=== PATIENT | female | born 1985 | race African-American/Black ===

== ENCOUNTER 2022-06-24 14:30 | Outpatient (RCR) | payer OTHER, SELFPAY ==
--- NOTE | 2022-04-29 17:03 | PTOPEVAL1 ---
Assessment and note entered by Altaf Michel, PT Evaluation Information Assessment Status Evaluation Diagnosis Bilateral knee joint pain Onset Chronic Subjective Information Patient reports she has been working hard trying to lose weight and has lost 80 lbs., but she is starting to have knee pain. She reports the the L knee pops more. She is currently using to small based quad canes for walking. Clinical Summary Kimberly is a 36 year old female coming into the clinic with DAVIE knee pain. She has decreased range of motion secondary lower extremity girth and decreased strength. Recommend half land based half aquatic therapy to work on strengthening with decreased stress on joints and body. Prognosis is guarded secondary to weight. These treatments will address the objective and functional deficits as defined above. The patient will be advanced safely and appropriately in order for the patient to progress towards his/her prior level of function. Additional exercises will be introduced and as well as a comprehensive home exercise program upon discharge, if needed, ?to ensure carryover of functional gains achieved in the clinic. This treatment plan has been reviewed and agreement upon by the patient.
--- NOTE | 2022-05-27 15:42 | PTOPREEVAL ---
Assessment and note entered by Altaf Michel, PT Evaluation Information Assessment Status Re-evaluation Diagnosis DAVIE knee joints Onset Chronic Subjective Information Patient reports she feels she is moving around faster and the R LE especially is easier to lift up in and out of bed. Assessment PT Clinical Summary Kimberly is a 36 year old female coming into the clinic with DAVIE knee pain. She was evaluated on and has attended 6 sessions with no missed visits. She has met her strength and pain goals. Physical therapist believe patient can still get stronger in her DAVIE LE to allow for reduced stress on her knees and help with pain control. Plan of Care Interventions Aquatic Therapy,Electrical Stimulation,Gait Training,Hot Pack/Cold Pack,Manual Therapy,Neuro Re-education,Patient/Caregiver Education,Therapeutic Activities,Therapeutic Exercise,Ultrasound Other Interventions taping, cupine, IASTM. PT Services Indicated Yes Treatment Frequency and 1-2x/wk for 4 weeks Duration These treatments will address the objective and functional deficits as defined above. The patient will be advanced safely and appropriately in order for the patient to progress towards his/her prior level of function. Additional exercises will be introduced and as well as a comprehensive home exercise program upon discharge, if needed, ?to ensure carryover of functional gains achieved in the clinic. This treatment plan has been reviewed and agreement upon by the patient.
--- NOTE | 2022-06-24 15:53 | PTOPDC ---
Assessment and note entered by Altaf Michel, PT Evaluation Information Assessment Status Discharge Diagnosis DAVIE knee pain Onset Chronic Subjective Information Patient reports was doing well until a fall in the last week. Now has increased L thigh pain. Encouraged patient to use ice on the thigh not the knee joint. Patient feels comfortable with her HEP. Reported Pain Level Pain Score 4: Self Report Assessment PT Clinical Summary Kimberly is a 36 year old female coming into the clinic with a diagnosis of DAVIE knee pain. She was evaluated on 04/29/22 and attended 12 visits. She met all of her initial goals, but is having trouble with her new goals. Patient also has new orders for plantar fascitis from a different doctor. We will discharge her from physical therapy for the knees at this time and evaluate her for her feet issues. Patient is comfortable with her HEP and will still do aquatic therapy with her new diagnosis to help with the knee pain. Plan of Care PT Services Indicated No
== END 2022-06-25 14:40 | disposition home or self-care (01) ==
LOC: ANHPT 14:30
PROVIDERS: PCP Internal Medicine; Visit Provider Orthopaedic Surgery
DX: M25.561 Pain in right knee (principal)
CPT/HCPCS: 97110; 97113; 97161; 97530

== ENCOUNTER 2022-07-22 16:45 | Emergency (ER) | payer OTHER, SELFPAY ==
[2022-07-22] VITALS (20 sets, daily range): BP systolic 168–225; BP diastolic 112–156; PULSE 73–101; RESP 14–30; TEMP 36.2; O2SAT 95–100
--- NOTE | ~2022-07-22 | CT_ITS ---
EXAMINATION: CT brain wo con DATE: 07/22/2022 17:47 INDICATION: Headache. TECHNIQUE: Computed tomography (CT) of the head was performed without intravenous contrast. The mA wa s adjusted according to patient size. Iterative reconstruction technique was employed. The dose-lengt h product was 681.00 mGy-cm. COMPARISON: Head CT 09/20/2016 FINDINGS: There is no intracranial hemorrhage, acute infarction, or abnormal intracranial mass lesion . The ventricles are normal in size. Cavum septum pellucidum and vergae are noted. There is mucosal t hickening in the paranasal sinuses. The mastoid air cells are normal. The orbits are normal. IMPRESSION: 1. Normal brain. Reviewed, dictated and finalized at location E. IMPRESSION: 1. Normal brain.
--- NOTE | ~2022-07-22 | XR_ITS ---
EXAMINATION: XR chest 1V portable DATE: 07/22/2022 19:06 INDICATION: Hypertensive urgency. TECHNIQUE: A single frontal view of the chest was obtained. COMPARISON: None. FINDINGS: The chest demonstrates clear lungs without pneumonia, pleural effusion, or pneumothorax. Th e heart size is normal. IMPRESSION: 1. No acute cardiopulmonary disease. Reviewed, dictated and finalized at location E.
[2022-07-22 17:48] LABS: Basophils Percent Auto 0.6 % (0.2-1.2); Eosinophils Absolute Auto 0.2 K/mm3 (0-0.3); Eosinophils Percent Auto 3.3 % (0-4.4); Hematocrit 40.9 % (37.0-47.0); Hemoglobin 13.5 g/dL (12.0-15.0); Immature Granulocyte Absolute 0.02 K/mm3 (0.00-0.031); Immature Granulocyte Percent A 0.3 % (0-0.5); Lymphocytes Absolute Auto 2.77 K/mm3 (0.9-3.2); Lymphocytes Percent Auto 39.9 % (18.3-44.2); Mean Corpuscular Volume 90.9 fl (80-100); Mean Platelet Volume 11.7 fl (7.4-10.4); Monocytes Absolute Auto 0.6 K/mm3 (0.1-0.6); Monocytes Percent Auto 8.1 % (2.6-8.5); Neutrophils Absolute Auto 3.3 K/mm3 (1.3-6.7); Neutrophils Percent Auto 47.8 % (45.5-73.1); Platelet Count Result 192 k/mm3 (150-375); Red Cell Distribution Width 12.6 % (11.5-14.5); White Blood Count 6.9 K/mm3 (4.5-10.0)
[2022-07-22] MEDS: hydrALAZINE HCL 20 MG/ML VIAL 10 MG IV PUSH (17:51)
[2022-07-22 17:55] LABS: Alanine Aminotransferase 35 U/L (6-35); Albumin Level 3.9 g/dL (3.5-5.1); Alkaline Phosphatase 56 U/L (38-126); Anion Gap 2 mmol/L (8-16); Aspartate Amino Transferase 29 U/L (14-36); Bilirubin,Total 0.4 mg/dL (0.2-1.3); Blood Urea Nitrogen 13 mg/dL (7-17); Calcium 9.1 mg/dL (8.4-10.2); Carbon Dioxide 32 mmol/L (22-30); Chloride 102 mmol/L (98-107); Estimated CRCL calculation 178 ml/min; Estimated Glomerular Filt Rate > 60; Glucose 83 mg/dL (65-110); Potassium 3.8 mmol/L (3.4-5.0); Sodium 136 mmol/L (137-145)
--- NOTE | 2022-07-22 18:11 | ED.GENADULT ---
HPI - General Adult General Chief complaint: Recheck/Abnormal Lab/Rx <Robert Marina PA-C - Last Filed: 07/22/22 21:43> Stated complaint: HTN <CHATA Estrella Last Filed: 07/22/22 21:43> Time Seen by Provider: 07/22/22 17:24 <CHATA Estrella Last Filed: 07/22/22 21:43> Source: patient <CHATA Estrella Last Filed: 07/22/22 21:43> Mode of arrival: ambulatory <CHATA Estrella Last Filed: 07/22/22 21:43> Limitations: no limitations <CHATA Estrella Last Filed: 07/22/22 21:43> History of Present Illness HPI narrative: This is a 36 yo F who presents to the ED with chief complaint of hypertension measured 1 time at PCP and multiple times at home with home blood pressure cuff. Patient reports blood pressures in the 200s over 110s. She states that she has occasional shortness of breath. Denies chest pain. Reports 5 seconds of blurred vision while in the waiting room that has completely resolved. Reports a mild headache that is familiar to her. Denies any other neurologic symptoms or sudden onset headache. Denies abdominal pain, vomiting. <Robert Marina PA-C - Last Filed: 07/22/22 21:43> Related Data Allergies/adverse reactions: Allergies Allergy/AdvReac Type Severity Reaction Status Date / Time ciprofloxacin Allergy Unknown Unknown Verified 07/22/22 16:46 <Robert Marina PA-C - Last Filed: 07/22/22 21:43> Review of Systems Review of Systems: CONSTITUTIONAL: Denies fever, chills, or sweats. EYES: Denies visual changes, redness, or discharge. ENT: Denies rhinorrhea, congestion, sore throat, or otalgia. CARDIOVASCULAR: Denies chest pain, palpitations, or edema. RESPIRATORY: Denies cough or dyspnea. GASTROINTESTINAL: Denies abdominal pain, nausea, vomiting, or diarrhea. GENITOURINARY: Denies dysuria or hematuria. SKIN: Denies rash or itching. MUSCULOSKELETAL: Denies back pain, joint pain, or myalgia. NEUROLOGIC: Denies headache, numbness, dizziness, or weakness. PSYCHIATRIC: Denies anxiety or depression. <Robert Marina PA-C - Last Filed: 07/22/22 21:43> Exam Narrative: GENERAL: Well-appearing, well-nourished, and in no acute distress. HEAD: Normocephalic, atraumatic. EYES: PERRLA and EOMI. ENT: Nares clear, no rhinorrhea or epistaxis. Mucous membranes moist. Oropharynx without tonsillar hypertrophy exudate or other lesions. NECK: Supple. No adenopathy or masses. CHEST: No respiratory distress. Clear to auscultation. No wheezes rales or rhonchi HEART: Regular rate and rhythm. No murmur heard. Normal peripheral pulses. ABDOMEN: Soft, nontender, nondistended, normal active bowel sounds. MSK: Normal range of motion. No edema. SKIN: Warm, dry, no rash. NEURO: Alert and oriented x3. No focal deficits. PSYCH: Normal mood and affect. <Robert Marina PA-C - Last Filed: 07/22/22 21:43> Course [employer]PER[employer]OR/PA Physician Supervision This is a was performed by both a physician and an APC. I performed all aspects of the MDM as documented w/ the following additions: 36-year-old female presenting with hypotension. She had some subjective complaints on arrival but no objective findings. Her lab work was normal. On re-evaluation she is asymptomatic. Patient will be discharged with a diagnosis of asymptomatic hypertension and given primary care follow-up. All questions answered. Patient in agreement w/ disposition. <Edward Arenas MD - Last Filed: 07/23/22 05:36> Vital Signs Vital signs: Vital Signs Temperature 97.2 F L 07/22/22 16:50 Pulse Rate 101 H 07/22/22 16:50 Respiratory Rate 22 H 07/22/22 16:50 Blood Pressure 225/124 H 07/22/22 16:50 Pulse Oximetry 100 07/22/22 16:50 Oxygen Delivery Room Air 07/22/22 16:50 Temperature 97.2 F L 07/22/22 16:50 Pulse Rate 83 07/22/22 20:01 Respiratory Rate 14 07/22/22 20:01 Blood Pressure 178/112 H 07/22/22 20:01 Pulse Oximetry 98 07/22/22 20:01 Oxygen Delivery Ro
[2022-07-22] MEDS: KETOROLAC 15 MG/ML VIAL (*BKC) IV PUSH (18:12)
[2022-07-22] MEDS: METOPROLOL TARTRATE INJ 5 MG/5 ML VIAL IV PUSH ×2 (18:12→18:51)
[2022-07-22 19:15] LABS: Troponin I < 0.012 ng/mL (0.000-0.034)
== END 2022-07-22 20:19 | disposition home or self-care (01) ==
PROVIDERS: Emergency Provider Physician Assistant; PCP Internal Medicine
DX: I16.0 Hypertensive urgency (principal); I10 Essential (primary) hypertension
CPT/HCPCS: 36415; 70450; 71045; 80053; 84484; 85025; 96374; 96375; 96376; 99284; J0360; J1885

== ENCOUNTER 2022-09-01 15:30 | Outpatient (RCR) | payer OTHER, SELFPAY ==
--- NOTE | 2022-07-07 15:25 | PTOPEVAL1 ---
Assessment and note entered by Altaf Michel, PT Evaluation Information Assessment Status Evaluation Diagnosis DAVIE plantar fascitis/peroneal tendinosis Subjective Information Patient reports having the feet pain on and off for 4 years, has been meaning to work on it and also get orthotic inserts for her feet. Still having weakness and pain in her DAVIE knees. Reported Pain Level Pain Score Mild Pain: Tyler Pickett Additional Pain Score Comments pain in the feet worse in weightbearing and with palpation Assessment PT Clinical Summary Kimberly is a 36 year old female coming into the clinic with a diagnosis of DAVIE plantar fascitis and peroneal tendinosis. She has been coming to see us prior for DAVIE knee pain. Patient has decreased range of motion on the R ankle along with pain with palpation on both feet and decreased big toe flexibility. Physical therapy will work with the patient on manual therapy and US for pain control along with stretching and strengthening exercises. Recommend continued aquatic therapy to allow for more participation. Plan of Care Interventions Aquatic Therapy,Electrical Stimulation,Gait Training,Hot Pack/Cold Pack,Manual Therapy,Neuro Re-education,Patient/Caregiver Education,Therapeutic Activities,Therapeutic Exercise,Ultrasound Other Interventions cupping, taping, IASTM PT Services Indicated Yes Treatment Frequency and 2x/wk for 4 weeks Duration These treatments will address the objective and functional deficits as defined above. The patient will be advanced safely and appropriately in order for the patient to progress towards his/her prior level of function. Additional exercises will be introduced and as well as a comprehensive home exercise program upon discharge, if needed, ?to ensure carryover of functional gains achieved in the clinic. This treatment plan has been reviewed and agreement upon by the patient.
--- NOTE | 2022-08-05 16:20 | PTOPPROG ---
Assessment and note entered by Altaf Michel, PT Evaluation Information Assessment Status Progress Diagnosis DAVIE plantar fascitis and peroneal tendinopathy Subjective Information Patient reports only having discomfort on the outside of DAVIE feet and she is moving around a lot better. She feels like she could still get stronger and is still using DAVIE straight canes. Assessment PT Clinical Summary Kimberly is a 36 year old female coming into the clinic with a diagnosis of DAVIE plantar fascia and peroneal tendinopathy. She was evaluated on and has attended 9 sessions so far. She has met her range of motion and pain goals, but still needs increased strength in her DAVIE LE. Recommend continued physical therapy to work on strengthening in and out of the pool. Plan of Care Interventions Aquatic Therapy,Electrical Stimulation,Gait Training,Hot Pack/Cold Pack,Manual Therapy,Neuro Re-education,Patient/Caregiver Education,Therapeutic Activities,Therapeutic Exercise,Ultrasound Other Interventions cupping, taping, IASTM. PT Services Indicated Yes Treatment Frequency and 1-2x/wk for 4 weeks Duration These treatments will address the objective and functional deficits as defined above. The patient will be advanced safely and appropriately in order for the patient to progress towards his/her prior level of function. Additional exercises will be introduced and as well as a comprehensive home exercise program upon discharge, if needed, ?to ensure carryover of functional gains achieved in the clinic. This treatment plan has been reviewed and agreement upon by the patient.
--- NOTE | 2022-09-02 13:17 | PTOPDC ---
Assessment and note entered by Altaf Michel, PT Evaluation Information Assessment Status Discharge Diagnosis Plantar Fascitis/ Peroneal tendinopathy DAVIE feet Subjective Information Patient reports she still has pain in the lateral borders of DAVIE feet, but otherwise her feet along with knees and hips feel tolerable and she feels them a little more before it rains, but it is all manageable. Patient reports she is faithful and understands her HEP. Patient also interested in Lymphodema management. Reported Pain Level Pain Score 3: Self Report Assessment PT Clinical Summary Kimberly is a 36 year old female coming into the clinic with a diagnosis of plantar fascitis and peroneal tendinopathy. Patient was evaluated on and has attended 16 visits. Patient has met all goals besides hip flexion strength. Patient understands HEP and knows to continue to do it to prevent any relapse in symptoms. Discharged from skilled physical therapy. Plan of Care PT Services Indicated No
== END 2022-09-03 14:22 | disposition home or self-care (01) ==
LOC: ANHPT 15:30
PROVIDERS: PCP Internal Medicine; Visit Provider Podiatrist Foot & Ankle Surgery
DX: M72.2 Plantar fascial fibromatosis (principal); M76.72 Peroneal tendinitis, left leg; M76.71 Peroneal tendinitis, right leg
CPT/HCPCS: 97110; 97113; 97140; 97161; 99199

== ENCOUNTER 2022-12-05 18:31 | Emergency (ER) | payer OTHER, SELFPAY ==
[2022-12-05 18:49] VITALS: BP 190/108; PULSE 82; RESP 18; TEMP 36.3; O2SAT 100
--- NOTE | 2022-12-05 18:54 | ECG_ITS ---
Measurements Intervals [place] Rate: 78 P: 68 [place]: 163 QRS: 20 QRSD: 104 T: 29 QT: 366 QTc: 418 Interpretive Statements SINUS RHYTHM WITH SINUS ARRHYTHMIA INCOMPLETE RIGHT BUNDLE BRANCH BLOCK [90+ ms QRS DURATION, TERMINAL R IN V1/V2, 40+ ms S IN I/aVL/V4/V5/V6] ABNORMAL ECG NO PREVIOUS ECG AVAILABLE FOR COMPARISON Electronically Signed On 12-06-2022 9:28:14 CDT by Uriel Acevedo M.D.
[2022-12-05 19:27] LABS: Basophils Percent Auto 0.4 % (0.2-1.2); Eosinophils Absolute Auto 0.4 K/mm3 (0-0.3); Hematocrit 41.6 % (37.0-47.0); Hemoglobin 13.4 g/dL (12.0-15.0); Immature Granulocyte Absolute 0.01 K/mm3 (0.00-0.031); Immature Granulocyte Percent A 0.1 % (0-0.5); Lymphocytes Absolute Auto 4.19 K/mm3 (0.9-3.2); Lymphocytes Percent Auto 46.2 % (18.3-44.2); Mean Corpuscular HGB Conc 32.2 g/dl (32-36); Mean Corpuscular Volume 93.3 fl (80-100); Mean Platelet Volume 11.5 fl (7.4-10.4); Monocytes Absolute Auto 0.5 K/mm3 (0.1-0.6); Monocytes Percent Auto 5.7 % (2.6-8.5); Neutrophils Absolute Auto 3.9 K/mm3 (1.3-6.7); Neutrophils Percent Auto 43.6 % (45.5-73.1); Platelet Count Result 209 k/mm3 (150-375); Red Blood Count 4.46 M/mm3 (4.2-5.4); Red Cell Distribution Width 12.5 % (11.5-14.5); White Blood Count 9.1 K/mm3 (4.5-10.0)
[2022-12-05 19:39] LABS: Alanine Aminotransferase 23 U/L (6-35); Albumin Level 4.1 g/dL (3.5-5.1); Alkaline Phosphatase 57 U/L (38-126); Anion Gap 4 mmol/L (8-16); Aspartate Amino Transferase 24 U/L (14-36); Bilirubin,Total 0.6 mg/dL (0.2-1.3); Blood Urea Nitrogen 15 mg/dL (7-17); Calcium 9.1 mg/dL (8.4-10.2); Carbon Dioxide 33 mmol/L (22-30); Chloride 100 mmol/L (98-107); Estimated CRCL calculation 138 ml/min; Estimated Glomerular Filt Rate > 60; Glucose 92 mg/dL (65-110); Lipase 110 U/L (23-300); Potassium 3.6 mmol/L (3.4-5.0); Sodium 137 mmol/L (137-145)
--- NOTE | 2022-12-05 21:23 | ED.ABDPAIN ---
HPI - Abdominal Pain General Chief Complaint: Abdominal Pain Stated Complaint: ABD pain, flank pain, hypertension, vaginal bleed Time Seen by Provider: 12/05/22 21:03 History of Present Illness HPI narrative: 36-year-old female presents to the emergency department for evaluation of urinary incontinence, flank pain and lower abdominal pain. Patient states symptoms started a few days ago. Patient denies any prior history of kidney stones. Patient denies any pain with urination. Patient denies any change in bowel habits. Review of Systems Review of Systems: All systems reviewed & are unremarkable except as noted in HPI and below Exam Narrative: APPEARANCE: Well appearing, no pain, no distress, well-nourished. HEAD: normocephalic, atraumatic. EYES: PERRLA/EOMI, conjunctivae clear. NOSE: Normal no drainage NECK: Supple. No adenopathy, no masses. RESPIRATORY: Airway patent, respirations nonlabored. Clear to auscultation bilaterally, no rales, rhonchi, wheezing. CARDIOVASCULAR: Regular rate and rhythm without murmurs rubs or gallops. ABDOMINAL: Soft, suprapubic tenderness to palpation MUSCULOSKELETAL: Moves all extremities. Strength/ROM intact, No edema, No calf tenderness. NEURO: Alert. Cranial nerves II through XII intact. Grossly intact SKIN: Warm, dry. Normal Color Course Course Emergency Course: 36-year-old female presented the emergency department for evaluation of lower abdominal pain, hematuria, urinary incontinence. UA is concerning for urinary tract infection. Patient is afebrile with no leukocytosis. No acute abnormalities on her CMP. Patient body habitus was not compatible with a CT scan. Patient has no prior history of ureteral calculi. Patient was treated with urinary tract infection with 1 g of IV Rocephin in the ED and patient was discharged home with Keflex. Vital Signs Vital signs: Vital Signs Temperature 97.3 F L 12/05/22 18:49 Pulse Rate 82 12/05/22 18:49 Respiratory Rate 18 12/05/22 18:49 Blood Pressure 190/108 H 12/05/22 18:49 Pulse Oximetry 100 12/05/22 18:49 Oxygen Delivery Room Air 12/05/22 18:49 Temperature 97.3 F L 12/05/22 18:49 Pulse Rate 78 12/05/22 23:56 Respiratory Rate 16 12/05/22 23:56 Blood Pressure 148/62 H 12/05/22 23:56 Pulse Oximetry 100 12/05/22 23:56 Oxygen Delivery Room Air 12/05/22 18:49 MDM - Abdominal Pain Differential Diagnosis Differential diagnosis: Likely abdominal pain, calculus of kidney, constipation and other Lab Data Attestation: I reviewed the patient's lab results. 12/05/22 19:21 12/05/22 19:21 Labs: Lab Results 12/05/22 12/05/22 Range/Units 19:21 21:56 WBC 9.1 (4.5-10.0) K/mm3 RBC 4.46 (4.2-5.4) M/mm3 Hgb 13.4 (12.0-15.0) g/dL Hct 41.6 (37.0-47.0) % MCV 93.3 (80-100) fl MCH 30.0 (26-34) pg MCHC 32.2 (32-36) g/dl RDW 12.5 (11.5-14.5) % Plt Count 209 (150-375) k/mm3 MPV 11.5 H (7.4-10.4) fl Immature Gran % (Auto) 0.1 (0-0.5) % Neut % (Auto) 43.6 L (45.5-73.1) % Lymph % (Auto) 46.2 H (18.3-44.2) % [place] % (Auto) 5.7 (2.6-8.5) % Eos % (Auto) 4.0 (0-4.4) % Baso % (Auto) 0.4 (0.2-1.2) % Lymph # (Auto) 4.19 H (0.9-3.2) K/mm3 [place] # (Auto) 0.5 (0.1-0.6) K/mm3 Eos # (Auto) 0.4 H (0-0.3) K/mm3 Baso # (Auto) 0.0 (0.0-0.1) K/mm3 Abs Immat Gran (auto) 0.01 (0.00-0.031) K/mm3 Absolute Neuts (auto) 3.9 (1.3-6.7) K/mm3 Absolute Nucleated RBC 0.0 (0.0-0.012) K/mm3 Nucleated RBC % 0.0 (0.0-0.2) % Sodium 137 (137-145) mmol/L Potassium 3.6 (3.4-5.0) mmol/L Chloride 100 (98-107) mmol/L Carbon Dioxide 33 H (22-30) mmol/L Anion Gap 4 L (8-16) mmol/L BUN 15 (7-17) mg/dL Creatinine 0.90 (0.7-1.0) mg/dL Estim Creat Clear Calc 138 ml/min Estimated GFR > 60 (59 - ) Glucose 92 (65-110) mg/dL Calcium 9.1 (8.4-10.2) mg/dL Total Bilirubin 0.6 (0.2-1.3) mg/dL AST
[2022-12-05] MEDS: fentaNYL CITRATE INJ (*CRX) 100 MCG/2 ML VIAL 50 MCG IV PUSH (21:53)
[2022-12-05] MEDS: SODIUM CHLORIDE 0.9% IV 1,000 ML 999 ML IV CONT (21:54)
[2022-12-05 21:57] VITALS: BP 152/98; PULSE 82; RESP 15; O2SAT 100
[2022-12-05 22:05] LABS: Appearance Urine Clear (Clear); Bilirubin Urine Negative (Negative); Blood Urine 3+ (Negative); Color Urine Yellow (Yellow); Glucose Urine UA Negative (Negative); Ketones Urine Negative (Negative); Leukocyte Esterase Ur Trace LEU/UL (Negative); Nitrate Urine Negative (Negative); Protein Urine Negative (Negative); Specific Grav Ur 1.015 (1.001-1.035); Urobilinogen Urine 0.2 mg/dL (<2.0); pH Urine 6.5 (5.0-9.0)
[2022-12-05 22:10] LABS: Bacteria Urine 4+ /hpf; Non Pathogenic Casts 0-2; RBC Urine 51-100 /hpf (0-2); Squamous Epithelial Cell Urine Occasional /hpf (Few)
[2022-12-05 22:11] LABS: Add Urine Microscopic? YES
[2022-12-05] MEDS: LIDOCAINE HCL 1% LOCAL INJ 10 ML VIAL (23:18)
[2022-12-05] MEDS: cefTRIAXone 1 GM VIAL IM (23:18)
[2022-12-05 23:56] VITALS: BP 148/62; PULSE 78; RESP 16; O2SAT 100
== END 2022-12-05 23:57 | disposition home or self-care (01) ==
PROVIDERS: Emergency Medicine; Emergency Provider Emergency Medicine; PCP Internal Medicine
DX: N39.0 Urinary tract infection, site not specified (principal)
CPT/HCPCS: 36415; 80053; 81001; 81025; 83690; 85025; 87077; 87086; 87186; 93005; 96361; 96372; 96374; 99284; J0696; J3010; J7030

== ENCOUNTER 2024-05-23 13:22 | Outpatient (CLI) | payer OTHER, SELFPAY ==
[2024-05-23 14:01] LABS: Add Urine Microscopic? YES; Appearance Urine Clear (Clear); Bacteria Urine 1+ /hpf; Bilirubin Urine Negative (Negative); Blood Urine 3+ (Negative); Color Urine Yellow (Yellow); Glucose Urine UA Negative (Negative); Ketones Urine Negative (Negative); Leukocyte Esterase Ur Negative LEU/UL (Negative); Nitrate Urine Negative (Negative); Non Pathogenic Casts 0-2; Protein Urine Negative (Negative); Specific Grav Ur 1.016 (1.001-1.035); Squamous Epithelial Cell Urine Occasional /hpf (Few); WBC Urine 0-5 /hpf (0-3); pH Urine 5.5 (5.0-9.0)
--- OUTSIDE RECORDS SUMMARY | 2024-05-23 14:28 | XMS_ITS | Continuity of Care Document ---
Author Organization [facility] Address [address] [place] [address] [address] [place] [address] Phone Care Team Providers Care Sap Basis Consultant Name Role Phone Ansari OD, Favian Unavailable Unavailable Procedures Procedure Date Eye Exam, New Patient Refraction Advance Directives Directive Yes / No Effective Date File Name No Information Encounters Encounter Description Practice Location Reason(s) For Visit Diagnoses Date Provider Providers Copied on Encounter [facility], [address] [place] [address] [address], [place], [place], [id number], [place] tel:[phone] [facility] No Information Apr- 0-201 0 Ansari OD Favian. [address] , [address], [place], [address], [place]. tel:[phone] Family History Family Member Type Diagnosis Age At Onset No Information Payers Payer name Insurance type Covered alliance party ID Authoriza tion(s) Medicaid [facility] [id number] Social History Type Description Quantity Date Captured Comments Sex Female Smoking Status No Information Chief Complaint And Reason For Visit No Information Reason For Referral Reason For Referral No Information History Of Present Illness Encounter Date Complaint History Of Prese nt Illness No Information Functional Status Date Functional Assessmen t No Information Instructions Date Instruction Additional Infor mation No Information Assessments Type Assessment Date No Information Patient Care Teams Name Effective Dates (start - stop) Status Members No Information
== END 2024-05-23 13:23 | disposition home or self-care (01) ==
LOC: ANHLAB 13:24
PROVIDERS: PCP Family Medicine; Visit Provider Family Medicine
DX: R31.9 Hematuria, unspecified (principal)
CPT/HCPCS: 81001; 87086

== ENCOUNTER 2024-05-24 09:39 | Outpatient (CLI) | payer OTHER, SELFPAY ==
--- OUTSIDE RECORDS SUMMARY | 2024-05-24 10:22 | XMS_ITS | Continuity of Care Document ---
Author Organization [facility] Address [address] [place] [address] [address] [place] [address] Phone Care Team Providers Care Bucket Chucker Name Role Phone Ansari OD, Favian Unavailable Unavailable Procedures Procedure Date Eye Exam, New Patient Refraction Advance Directives Directive Yes / No Effective Date File Name No Information Encounters Encounter Description Practice Location Reason(s) For Visit Diagnoses Date Provider Providers Copied on Encounter [facility], [address] [place] [address] [address], [place], [place], [id number], [place] tel:[phone] [facility] No Information Apr- 0-201 0 Ansari OD Favian. [address] , [address], [place], [address], [place]. tel:[phone] Family History Family Member Type Diagnosis Age At Onset No Information Payers Payer name Insurance type Covered green party ID Authoriza tion(s) Medicaid [facility] [id number] Social History Type Description Quantity Date Captured [...]
[2024-05-24 19:28] LABS: Basophils Absolute Auto 0.1 K/mm3 (0.0-0.1); Basophils Percent Auto 0.7 % (0.2-1.2); Eosinophils Absolute Auto 0.2 K/mm3 (0-0.3); Eosinophils Percent Auto 2.3 % (0-4.4); Hematocrit 43.3 % (37.0-47.0); Hemoglobin 13.6 g/dL (12.0-15.0); Lymphocytes Absolute Auto 3.97 K/mm3 (0.9-3.2); Lymphocytes Percent Auto 52.9 % (18.3-44.2); Mean Corpuscular HGB Conc 31.4 g/dl (32-36); Mean Corpuscular Hemoglobin 29.6 pg (26-34); Mean Corpuscular Volume 94.3 fl (80-100); Mean Platelet Volume 11.8 fl (7.4-10.4); Monocytes Absolute Auto 0.4 K/mm3 (0.1-0.6); Monocytes Percent Auto 5.3 % (2.6-8.5); Neutrophils Absolute Auto 2.9 K/mm3 (1.3-6.7); Neutrophils Percent Auto 38.8 % (45.5-73.1); Platelet Count Result 211 k/mm3 (150-375); Red Blood Count 4.59 M/mm3 (4.2-5.4); Red Cell Distribution Width 13.2 % (11.5-14.5); White Blood Count 7.5 K/mm3 (4.5-10.0)
[2024-05-24 20:11] LABS: Vitamin D 25 Hydroxy 40.3 ng/mL
[2024-05-24 20:25] LABS: Thyroid Stimulating Hormone Reflex 0.458 uIU/mL (0.465-4.68)
[2024-05-24 21:16] LABS: Alanine Aminotransferase 66 U/L (6-35); Albumin Level 4.2 g/dL (3.5-5.1); Alkaline Phosphatase 81 U/L (38-126); Anion Gap 13 mmol/L (4-12); Aspartate Amino Transferase 71 U/L (14-36); Bilirubin,Total 0.6 mg/dL (0.2-1.3); Blood Urea Nitrogen 13 mg/dL (7-17); Calcium 9.3 mg/dL (8.4-10.2); Carbon Dioxide 26 mmol/L (22-30); Chloride 104 mmol/L (98-107); Estimated Glomerular Filt Rate > 60; Glucose 73 mg/dL (65-110); HDL Direct 42 mg/dL; Potassium 3.7 mmol/L (3.4-5.0); Sodium 143 mmol/L (137-145); Triglycerides 55 mg/dL (<150)
[2024-05-24 21:18] LABS: Cholesterol 201 mg/dL (0-200)
[2024-05-24 21:27] LABS: LDL Cholesterol Direct 103 mg/dL
[2024-05-24 22:06] LABS: Hemoglobin A1C 5.3 % (<5.7)
[2024-05-25 05:57] LABS: Free T4 Free Thyroxine Reflex 1.35 ng/dL (0.78-2.19)
[2024-05-25 06:51] LABS: Total Triiodothyronine (T3) 1.35 NG/ML (0.97-1.69)
== END 2024-05-24 09:40 | disposition home or self-care (01) ==
LOC: ANHGOSHLAB 09:40
PROVIDERS: PCP Family Medicine; Visit Provider Family Medicine
DX: I10 Essential (primary) hypertension (principal); E55.9 Vitamin D deficiency, unspecified; Z00.00 Encounter for general adult medical examination without abnormal findings; R73.9 Hyperglycemia, unspecified; E78.5 Hyperlipidemia, unspecified; E53.8 Deficiency of other specified B group vitamins
CPT/HCPCS: 36415; 80053; 80061; 82306; 82607; 83036; 84439; 84443; 84480; 85025

== ENCOUNTER 2024-06-15 07:27 | Outpatient (CLI) | payer OTHER, SELFPAY ==
--- NOTE | ~2024-06-15 | CT_ITS ---
CT of the Abdomen and Pelvis: Indication: Hematuria Technique: 2.5 mm axial scans were obtained through the abdomen and pelvis prior to and following in travenous administration of 130 cc of Omnipaque 350. Dose reduction technique was used on this scan b y utilizing automated exposure control and iterative reconstruction technique. The dose-length produc t (DLP) was 3295.82 mGy-cm. Findings: Scans through the lung bases are unremarkable. The liver, spleen, pancreas, gallbladder, adrenals and kidneys are within normal limits. No evidence of aortic aneurysm. No lymphadenopathy. No bowel obstruction or bowel wall thickening. There is evidence of prior bariatric surgery. Small to moderate fat-containing umbilical hernia present. Images through the pelvis were performed. Urinary bladder unremarkable. IUD in place. No adnexal mass . No ascites. Impression: No etiology for hematuria identified. Small to moderate fat-containing abdominal hernia. IUD. Reviewed, dictated and finalized at [facility]. Impression: No etiology for hematuria identified. Small to moderate fat-containing abdominal hernia. IUD.
--- OUTSIDE RECORDS SUMMARY | 2024-06-15 07:34 | XMS_ITS | Continuity of Care Document ---
Author Organization [facility] Address [address] [place] [address] [address] [place] [address] Phone Care Team Providers Care Instrument Repairer Steam Plant Name Role Phone Ansari OD, Favian Unavailable Unavailable Procedures Procedure Date Eye Exam, New Patient Refraction Advance Directives Directive Yes / No Effective Date File Name No Information Encounters Encounter Description Practice Location Reason(s) For Visit Diagnoses Date Provider Providers Copied on Encounter [facility], [address] [place] [address] [address], [place], [place], [id number], [place] tel:[phone] [facility] No Information Apr- 0-201 0 Ansari OD Favian. [address] , [address], [place], [address], [place]. tel:[phone] Family History Family Member Type Diagnosis Age At Onset No Information Payers Payer name Insurance type Covered libertarian ID Authoriza tion(s) Medicaid [facility] [id number] Social History Type Description Quantity Date Captured [...]
== END 2024-06-15 07:28 | disposition home or self-care (01) ==
PROVIDERS: PCP Family Medicine; Visit Provider Urology
DX: R31.0 Gross hematuria (principal); Z97.5 Presence of (intrauterine) contraceptive device; K44.9 Diaphragmatic hernia without obstruction or gangrene
CPT/HCPCS: 74178; Q9967

== ENCOUNTER 2024-07-02 11:18 | Outpatient (CLI) | payer OTHER, SELFPAY ==
[2024-07-02 13:03] LABS: Alanine Aminotransferase 70 U/L (6-35); Albumin Level 3.6 g/dL (3.5-5.1); Alkaline Phosphatase 74 U/L (38-126); Anion Gap 4 mmol/L (4-12); Aspartate Amino Transferase 50 U/L (14-36); Bilirubin,Total 0.5 mg/dL (0.2-1.3); Blood Urea Nitrogen 14 mg/dL (7-17); Calcium 8.8 mg/dL (8.4-10.2); Carbon Dioxide 32 mmol/L (22-30); Chloride 105 mmol/L (98-107); Estimated Glomerular Filt Rate > 60; Glucose 75 mg/dL (65-110); Potassium 3.9 mmol/L (3.4-5.0); Sodium 141 mmol/L (137-145)
== END 2024-07-02 11:19 | disposition home or self-care (01) ==
LOC: ANHGOSHLAB 11:19
PROVIDERS: PCP Family Medicine; Visit Provider Family Medicine
DX: R74.8 Abnormal levels of other serum enzymes (principal)
CPT/HCPCS: 36415; 80053

== ENCOUNTER 2024-09-22 15:00 | Emergency (ER) | payer OTHER, SELFPAY ==
[2024-09-22] VITALS (15 sets, daily range): BP systolic 123–137; BP diastolic 61–86; PULSE 92–109; RESP 18–37; TEMP 36.9; O2SAT 94–100
--- NOTE | 2024-09-22 15:16 | ECG_ITS ---
Test Date: 2024-09-22 15:38:16 Measurements Intervals [place] Rate: 98 P: 16 [place]: 155 QRS: 35 QRSD: 98 T: 24 QT: 338 QTc: 432 Interpretive Statements SINUS RHYTHM No previous ECG available for comparison Electronically Signed On 09-23-2024 14:13:29 CDT by Blane Mendez M.D.
--- NOTE | 2024-09-22 15:21 | ED_ITS ---
HPI - General Adult General Chief complaint: Recheck/Abnormal Lab/Rx Stated complaint: heat exhaustion History of Present Illness HPI narrative: 38-year-old female present to the emergency department for evaluation for suspect heat exhaustion. 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 Patient states that she stood up and felt excessively fatigued. EMS was called. Patient did receive some IV fluids and upon arrival emergency department patient's heart rate is improved patient does feel improved. She denies any current chest pain or shortness of breath. Patient denies any current weakness or fatigue. Related Data Home Medications ?Medication ?Instructions ?Recorded ?Confirmed ?Last Taken ?Type calcium carbonate 200 mg calcium 1 tablet PO DAILY 01/10/24 04/10/24 Unknown History (500 mg)-vitamin D3 400 unit tablet [id number] 45 mg-folic 1 cap PO DAILY 01/10/24 04/10/24 Unknown History acid 800 mcg-vit K 120 mcg capsule (Bariatric Multivitamins) atogepant 60 mg tablet (Qulipta) 60 mg PO DAILY 04/10/24 04/10/24 Unknown History Allergies Allergy/AdvReac Type Severity Reaction Status Date / Time celecoxib (From Celebrex) Allergy Severe Rash Verified 09/22/24 15:23 ciprofloxacin Allergy Unknown Unknown Verified 09/22/24 15:23 Review of Systems 2 Review of Systems: All systems reviewed & are unremarkable except as noted in HPI and below PMFSH Past Medical History Medical History Migraine Neuropathy involving both lower extremities Osteoarthritis Hemiplegic migraine without status migrainosus resolved in 2018 Morbid obesity Lymphedema of both lower extremities Essential (primary) hypertension PCOS (polycystic ovarian syndrome) Prediabetes Surgical History Surgical History Status post gastric bypass for obesity (~11/2023) Family History Family History Mother Asthma Diabetes mellitus Heart disease Hypertension Father Asthma Heart disease Diabetes mellitus Hypertension Cerebrovascular accident Thyroid disease Sibling Hypertension Diabetes mellitus Heart disease Grandparent Diabetes mellitus Heart disease Hypertension Cerebrovascular accident Social History Social History Smoking status: Former smoker Alcohol intake: never Substance use: never Substance use type: does not use Living arrangements: with family Occupation/Education: occupation Gender identity (if verbalized by the patient): Female Agree to blood products: Yes Exam 2 Narrative: APPEARANCE: Well appearing, no pain, no distress, well-nourished. HEAD: normocephalic, atraumatic. EYES: PERRLA/EOMI, conjunctivae clear. NOSE: Normal no drainage EARS:TMS clear with good light reflex. THROAT: Pharynx clear, no exudate. NECK: Supple. No adenopathy, no masses. RESPIRATORY: Airway patent, respirations nonlabored. Clear to auscultation bilaterally, no rales, rhonchi, wheezing. CARDIOVASCULAR: Regular rate and rhythm without murmurs rubs or gallops. ABDOMINAL: Soft, nontender, nondistended, normal bowel sounds MUSCULOSKELETAL: Moves all extremities. Strength/ROM intact, No edema, No calf tenderness. NEURO: Alert. Cranial nerves II through XII intact. Grossly intact SKIN: Warm, dry. Normal Color Course Vital Signs Vital signs: Vital Signs Temperature 98.4 F 09/22/24 15:05 Pulse Rate 104 H 09/22/24 15:05 Respiratory Rate 18 09/22/24 15:05 Blood Pressure 127/67 09/22/24 15:05 Pulse Oximetry 98 09/22/24 15:05 Oxygen Delivery Room Air 09/22/24 15:05 Temperature 98.4 F 09/22/24 15:05 Pulse Rate 104 H 09/22/24 15:05 Respiratory Rate 20 09/22/24 15:21 Blood Pressure 127/67 09/22/24 15:05 Pulse Oximetry 98 09/22/24 15:21 Oxygen Delivery Room Air 09/22/24 15:05 Medical Decision Making [facility] Narrative Medical decision making narrative: 38-year-old female presenting to the emergency department for evaluation for increased generalized weakness. Patient reports he did feel improved after rehydration. Patient is currently afebrile with no leukocytosis hemoglobin of 12.2. INR is 1.1. No acute abnormalities on the patient's CMP with negative lactic acid. Total CK is not elevated. Patient was able to transfer at her baseline. Patient does feel improved and is requesting to be discharged home. Differential Diagnosis Differential Diagnosis: Heat exhaustion, dehydration, rhabdomyolysis, lactic acidosis Vital Signs Vital Signs: Vital Signs Temperature 98.4 F 09/22/24 15:05 Pulse Rate 104 H 09/22/24 15:05 Respiratory Rate 18 09/22/24 15:05 Blood Pressure 127/67 09/22/24 15:05 Pulse Oximetry 98 09/22/24 15:05 Oxygen Delivery Room Air 09/22/24 15:05 Temperature 98.4 F 09/22/24 15:05 Pulse Rate 104 H 09/22/24 15:05 Respiratory Rate 20 09/22/24 15:21 Blood Pressure 127/67 09/22/24 15:05 Pulse Oximetry 98 09/22/24 15:21 Oxygen Delivery Room Air 09/22/24 15:05 Lab Data Lab results reviewed: Yes I reviewed the patient's lab results. 09/22/24 15:27 09/22/24 15:27 Labs: Lab Results 09/22/24 Range/Units 15:27 WBC 5.6 (4.5-10.0) K/mm3 RBC 4.09 L (4.2-5.4) M/mm3 Hgb 12.2 (12.0-15.0) g/dL Hct 37.5 (37.0-47.0) % MCV 91.7 (80-100) fl MCH 29.8 (26-34) pg MCHC 32.5 (32-36) g/dl RDW 12.4 (11.5-14.5) % Plt Count 192 (150-375) k/mm3 MPV 11.4 H (7.4-10.4) fl Immature Gran % (Auto) 0.2 (0-0.5) % Neut % (Auto) 53.1 (45.5-73.1) % Lymph % (Auto) 36.9 (18.3-44.2) % Ware % (Auto) 7.1 (2.6-8.5) % Eos % (Auto) 2.3 (0-4.4) % Baso % (Auto) 0.4 (0.2-1.2) % Lymph # (Auto) 2.08 (0.9-3.2) K/mm3 Ware # (Auto) 0.4 (0.1-0.6) K/mm3 Eos # (Auto) 0.1 (0-0.3) K/mm3 Baso # (Auto) 0.0 (0.0-0.1) K/mm3 Abs Immat Gran (auto) 0.01 (0.00-0.031) K/mm3 Absolute Neuts (auto) 3.0 (1.3-6.7) K/mm3 Absolute Nucleated RBC 0.000 (0.0-0.012) K/mm3 Nucleated RBC % 0.0 (0.0-0.2) % PT 14.3 (11.1-14.7) Seconds INR 1.1 APTT 25.3 (22.3-36.8) Seconds Sodium 137 (137-145) mmol/L Potassium 3.8 (3.4-5.0) mmol/L Chloride 105 (98-107) mmol/L Carbon Dioxide 27 (22-30) mmol/L Anion Gap 5 (4-12) mmol/L BUN 14 (7-17) mg/dL Creatinine 0.80 (0.7-1.0) mg/dL Estim Creat Clear Calc 138 ml/min Estimated GFR > 60 (59 - ) Glucose 98 (65-110) mg/dL Lactic Acid 0.9 (0.7-2.0) mmol/L Calcium 9.1 (8.4-10.2) mg/dL Total Bilirubin 0.5 (0.2-1.3) mg/dL AST 58 H (14-36) U/L ALT 87 H (6-35) U/L Alkaline Phosphatase 81 (38-126) U/L Total Creatine Kinase 69 (30-135) U/L Total Protein 7.2 (6.3-8.2) g/dL Albumin 3.6 (3.5-5.1) g/dL Discharge Plan Discharge Clinical Impression: Heat exhaustion Patient Disposition: Home Condition: Stable Instructions: Antibiotic Form, Heat Exhaustion (ED) Additional Instructions: Drink plenty of fluids. Have close follow-up with your primary care physician. If you have any worsening symptoms then please call or return to the emergency department. Patient Language: Burkinan Prescriptions: No Action calcium carbonate-vitamin D3 200 mg (500 mg) -400 unit tablet 1 tablet PO DAILY Bariatric Multivitamins 45 mg iron- 800 mcg-120 mcg capsule 1 cap PO DAILY Qulipta 60 mg tablet 60 mg PO DAILY sumatriptan succinate 50 mg tablet See Rx Instructions PO .COMPLEX Qty: 10 0RF Rx Instructions: take 1 tab at onset of headache; if no relief may repeat 1 tab after at least 2 hrs; max = 4 tabs/24 hr PO cyclobenzaprine 5 mg tablet 5 mg PO TID PRN (Reason: muscle spasm) Qty: 20 0RF omeprazole 40 mg capsule,delayed release(DR/EC) 40 mg PO DAILY Qty: 90 0RF losartan-hydrochlorothiazide 50-12.5 mg tablet 1 tablet PO DAILY Qty: 90 1RF Follow-up/Referrals: Boubacar Wallace MD [Primary Care Provider] -
--- OUTSIDE RECORDS SUMMARY | 2024-09-22 15:25 | XMS_ITS | Continuity of Care Document ---
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 [address] , [address], [place], [address], [place]. tel:[phone] Family History Family Member Type Diagnosis Age At Onset No Information Payers Payer name Insurance type Covered alliance party ID Authoriza tion(s) Medicaid [facility] [id number] Social History Type Description Quantity Date Captured [...]
[2024-09-22 15:32] LABS: Hematocrit 37.5 % (37.0-47.0); Hemoglobin 12.2 g/dL (12.0-15.0); Immature Granulocyte Percent A 0.2 % (0-0.5); Lymphocytes Absolute Auto 2.08 K/mm3 (0.9-3.2); Mean Corpuscular HGB Conc 32.5 g/dl (32-36); Mean Corpuscular Hemoglobin 29.8 pg (26-34); Mean Corpuscular Volume 91.7 fl (80-100); Nucleated Red Blood Cells Absolute Auto 0.000 K/mm3 (0.0-0.012); Nucleated Red Blood Cells Perc 0.0 % (0.0-0.2); Platelet Count Result 192 k/mm3 (150-375); Red Blood Count 4.09 M/mm3 (4.2-5.4); White Blood Count 5.6 K/mm3 (4.5-10.0)
[2024-09-22 15:55] LABS: INR 1.1; Prothrombin Time 14.3 Seconds (11.1-14.7)
[2024-09-22 15:56] LABS: Partial Thromboplastin Time 25.3 Seconds (22.3-36.8)
[2024-09-22 15:58] LABS: Alanine Aminotransferase 87 U/L (6-35); Albumin Level 3.6 g/dL (3.5-5.1); Alkaline Phosphatase 81 U/L (38-126); Anion Gap 5 mmol/L (4-12); Aspartate Amino Transferase 58 U/L (14-36); Bilirubin,Total 0.5 mg/dL (0.2-1.3); Blood Urea Nitrogen 14 mg/dL (7-17); Calcium 9.1 mg/dL (8.4-10.2); Carbon Dioxide 27 mmol/L (22-30); Chloride 105 mmol/L (98-107); Creatine Kinase 69 U/L (30-135); Estimated CRCL calculation 138 ml/min; Estimated Glomerular Filt Rate > 60; Glucose 98 mg/dL (65-110); Potassium 3.8 mmol/L (3.4-5.0); Sodium 137 mmol/L (137-145); Total Protein 7.2 g/dL (6.3-8.2)
[2024-09-22] MEDS: LACTATED RINGERS 1,000 ML 999 ML IV CONT (16:06)
== END 2024-09-22 17:42 | disposition home or self-care (01) ==
PROVIDERS: Emergency Provider Emergency Medicine; PCP Family Medicine
DX: T67.5XXA Heat exhaustion, unspecified, initial encounter (principal); X58.XXXA Exposure to other specified factors, initial encounter
CPT/HCPCS: 36415; 80053; 82550; 83605; 85025; 85610; 85730; 93005; 96360; 99283; J7120